=== PATIENT | male | born 1960 | race Caucasian/White ===

== ENCOUNTER 2018-08-16 11:24 | Emergency (ER) | payer OTHER ==
[2018-08-16 11:31] VITALS: BP 136/81; PULSE 72; TEMP 98.2; BMI 26.1
[2018-08-16] MEDS ORDERED: KETOROLAC TROMETHAMINE 60 MG/2 ML VIAL IM ONE (11:41)
[2018-08-16] MEDS ORDERED: KETOROLAC TROMETHAMINE 60 MG/2 ML VIAL ONE (11:46)
--- NOTE | 2018-08-16 11:51 | PDOC ---
History of Present Illness - General Chief Complaint: Injury Stated Complaint: FALL Time Seen by Provider: 08/16/18 11:39 History Source: Patient (mid to lower back pain s/p fall while at work) - History of Present Illness Method of Injury: Yes: fall Loss of Consciousness: no loss of consciousness Associated Symptoms (Fall): denies symptoms, abdominal pain, chest pain, dizziness, muscle spasms, nausea/vomiting Past History - Travel Close contact w/someone who was outside of country & ill: No - Past Medical History Allergies/Adverse Reactions: Allergies Allergy/AdvReac Type Severity Reaction Status Date / Time No Known Allergies Allergy Verified 08/16/18 11:43 Home Medications: Ambulatory Orders Methocarbamol 500 mg PO TID 7 Days #21 tablet 08/16/18 Naproxen [EC-Naprosyn] 375 mg PO BID 15 Days #30 tablet. 08/16/18 COPD: No - Suicide/Smoking/Psychosocial Hx Smoking History: Never smoked Trauma Specific PMHX - Complaint Specific PMHX Arthritis: No Review of Systems - Review of Systems Constitutional: No: Chills, Fever Cardiac (ROS): No: Chest Pain Musculoskeletal: Yes: Back Pain. No: Gout, Joint Pain, Muscle Pain, Muscle Weakness, Neck Pain, Joint Stiffness Neurological: No: Numbness, Paresthesia, Weakness, Unsteady Gait, Dizziness *Physical Exam - Vital Signs Last Vital Signs Temp Pulse Resp BP Pulse Ox 98.2 F 72 18 136/81 99 08/16/18 11:28 08/16/18 11:28 08/16/18 11:28 08/16/18 11:28 08/16/18 11:28 - Physical Exam General Appearance: Yes: Nourished Respiratory/Chest: positive: Lungs Clear, Normal Breath Sounds Cardiovascular: positive: Regular Rhythm, Regular Rate, S1, S2 Musculoskeletal: positive: Muscle Spasm (lumbar sacral and thoracic region, no spine tenderness, + abrasion in thoracic region) Extremity: positive: Normal Capillary Refill, Normal Inspection, Normal Range of Motion Integumentary: positive: Normal Color 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: 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 NML intact, Fully Oriented, Alert, Normal Mood/ Affect, Normal Response, Motor Strength 5/5 ED Treatment Course - RADIOLOGY Radiology Studies Ordered: Category Date Time Status COCCYX [RAD] Stat Radiology 08/16/18 11:41 Ordered SPINE-LUMBAR SACRAL [RAD] Stat Radiology 08/16/18 11:41 Ordered SPINE-THORACIC [RAD] Stat Radiology 08/16/18 11:41 Ordered Medical Decision Making - Medical Decision Making 08/16/18 11:51 57y/o M with LBP since last night after a slip and fall at work denies LOC or head trauma no b/b incontinence or saddles anesthesia Exam: + abrasion in mid back from fall + paraspinal tenderness in thoracic and lumbarsacral no spine tenderness stable gait xray negative for acute fx + 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--pt made aware pain control, f/u pain management/ortho if pain persist 08/16/18 14:17 *DC/Admit/Observation/Transfer Diagnosis at time of Disposition: Back muscle spasm - Discharge Dispostion Disposition: HOME Condition at time of disposition: Stable Decision to Admit order: No - Prescriptions Prescriptions: Methocarbamol 500 mg PO TID 7 Days #21 tablet Naproxen [EC-Naprosyn] 375 mg PO BID 15 Days #30 tablet.dr - Referrals Referrals: Caleb Mcdonald MD [Staff Physician] - - Patient Instructions Printed Discharge Instructions: Low Back Pain Additional Instructions: your preliminary xray was negative for acute fracture or dislocation If the read is note for any fractures or abnormality you will be contacted please follow up orthopedic clinic if pain persist more than 2 weeks return to the ER if worsening symptoms occurs - Post Discharge Activity Forms/Work/School Notes: Back to Work
== END 2018-08-16 13:07 | disposition home or self-care (01) ==
LOC: JERFT 11:24
PROC: 3E0233Z Introduction of Anti-inflammatory into Muscle, Percutaneous Approach (ICD-10-PCS; principal; 2018-08-16)
DX: S39.82XA Other specified injuries of lower back, initial encounter (principal); S20.419A Abrasion of unspecified back wall of thorax, initial encounter; M62.830 Muscle spasm of back; W01.0XXA Fall on same level from slipping, tripping and stumbling without subsequent striking against object, initial encounter; Y93.89 Activity, other specified; Y92.511 Restaurant or cafe as the place of occurrence of the external cause; Y99.0 Civilian activity done for income or pay
CPT/HCPCS: 72070-TC-FY; 72100-TC-FY; 72220-TC-FY; 96372; 99281-25

== ENCOUNTER 2023-11-30 19:24 | Emergency (ER) | payer OTHER ==
[2023-11-30 19:32] VITALS: BP 158/84; PULSE 68; RESP 20; TEMP 98.1; BMI 25.0
[2023-11-30] MEDS ORDERED: ACETAMINOPHEN INJECTION 100 ML ONE (20:16)
[2023-11-30] MEDS ORDERED: LIDOCAINE 5% TOPICAL PATCH ONE (20:17)
[2023-11-30] MEDS ORDERED: ONDANSETRON 4 MG/2 ML VIAL ONE (20:17)
[2023-11-30 20:18] LABS: BASO % 0.4 % (0-2.0); EOS % 1.1 % (0-4.5); HEMATOCRIT 41.3 % (35.4-49); HEMOGLOBIN 14.4 GM/dL (11.7-16.9); LYMPH % 31.4 % (8-40); MCH 30.2 pg (25.7-33.7); MCHC 34.9 g/dl (32.0-35.9); MEAN CELL VOLUME 86.6 fl (80-96); MEAN PLT VOLUME 7.5 fl (7.5-11.1); MONO % 7.7 % (3.8-10.2); NEUT % 59.4 % (42.8-82.8); PLATELET COUNT 219 10^3/uL (134-434); RBC 4.76 M/mm3 (4.00-5.60); RDW 12.5 % (11.9-15.9); WHITE BLOOD COUNT 7.6 K/mm3 (4.0-10.0)
[2023-11-30 20:24] LABS: INR 0.95 (0.83-1.09); PROTHROMBIN TIME (PATIENT) 10.9 SEC (9.7-13.0)
[2023-11-30] MEDS: LIDOCAINE 4% PATCH TP ONE (20:24)
[2023-11-30] MEDS: ONDANSETRON 4 MG/2 ML VIAL IVPUSH ONE (20:24)
[2023-11-30] MEDS: ACETAMINOPHEN 1000 MG/100 ML BAG IVPB ONE (20:24)
[2023-11-30 20:27] LABS: ACTIVATED PTT 30.7 SECONDS (25.2-36.5)
[2023-11-30 20:33] LABS: URINE APPEARANCE CLEAR; URINE BILIRUBIN NEGATIVE (NEGATIVE); URINE COLOR YELLOW; URINE GLUCOSE (UA) NEGATIVE (NEGATIVE); URINE KETONE NEGATIVE (NEGATIVE); URINE LEUK ESTERASE NEGATIVE (NEGATIVE); URINE NITRITE NEGATIVE (NEGATIVE); URINE PROTEIN NEGATIVE (NEGATIVE); URINE UROBILINOGEN 0.2 mg/dL (0.2-1.0)
[2023-11-30 20:36] LABS: POTASSIUM 3.8 mmol/L (3.5-5.1)
[2023-11-30 20:38] LABS: CALCIUM 9.5 mg/dL (8.5-10.1)
[2023-11-30 20:39] LABS: ALBUMIN 4.4 g/dl (3.4-5.0); BLOOD UREA NITROGEN 14.6 mg/dL (7-18); MAGNESIUM 2.1 mg/dL (1.8-2.4)
[2023-11-30 20:42] LABS: CREATININE 0.9 mg/dL (0.55-1.3)
[2023-11-30 20:43] LABS: BILIRUBIN,TOTAL 0.6 mg/dL (0.2-1)
[2023-11-30 20:44] LABS: TOT PROT 7.5 g/dl (6.4-8.2)
[2023-11-30] MEDS: LIDOCAINE PATCH REMOVAL MC SCH (22:03)
== END 2023-11-30 22:44 | disposition home or self-care (01) ==
LOC: JER 19:24
PROC: 3E033NZ Introduction of Analgesics, Hypnotics, Sedatives into Peripheral Vein, Percutaneous Approach (ICD-10-PCS; principal; 2023-11-30)
PROC: 3E033GC Introduction of Other Therapeutic Substance into Peripheral Vein, Percutaneous Approach (ICD-10-PCS; 2023-11-30)
DX: R42 Dizziness and giddiness (principal); R11.0 Nausea; R51.9 Headache, unspecified
CPT/HCPCS: 36415; 71045-TC-FY; 80053; 81003; 83735; 84484; 85025; 85610; 85730; 86850; 86900; 86901; 87086; 93005; 93010; 99285-25; J0131